=== PATIENT | male | born 1945 | race American Indian/Alaskan Native ===

== ENCOUNTER 2017-11-22 18:02 | Emergency (ER) | payer BC, OTHER ==
[2017-11-22] MEDS ORDERED: Sodium Chloride 0.9% 10 ML Syringe FLUSH PRN (18:40)
[2017-11-22 18:50] VITALS: BP 124/55
[2017-11-22 19:04] LABS: CHLORIDE,CL 100 mmol/L (101-111); SODIUM,NA 134 mmol/L (135-145)
--- NOTE | 2017-11-22 19:26 | EDM.PDOC ---
ED HPI GENERAL MEDICAL PROBLEM - General Chief Complaint: Neurological Problem Stated Complaint: [id number] LACK OF BALANCE- FALL RISK. NUMB ON LT SUSI Time Seen by Provider: 11/22/17 19:00 Source of Information: Reports: Patient History Limitations: Reports: No Limitations - History of Present Illness INITIAL COMMENTS - FREE TEXT/NARRATIVE: This 71 yo male patient reports to the ED due to weakness and numbness of his left hand and left foot. The patient reports his symptoms started this morning at about 1100. The patient reports that his symptoms seem to come and go. At the time of the examination, the patient reports no current symptoms. The patient has a past history of diabetes, hyperlipidemia and hypertension. Onset: Today Onset Date: 11/22/17 Onset Time: 11:00 Duration: Intermittent Location: Reports: Generalized Quality: Reports: Other Severity: Moderate Improves with: Reports: None Worsens with: Reports: None Associated Symptoms: Reports: No Other Symptoms - Related Data Allergies Allergy/AdvReac Type Severity Reaction Status Date / Time No Known Allergies Allergy Verified 11/22/17 18:46 Home Meds: Home Meds Aspirin [Adult Low Dose Aspirin EC] 81 mg PO DAILY 12/29/13 [History] Brimonidine Tartrate 1 drop EYEBOTH BID 12/29/13 [History] Lisinopril 1 tab PO DAILY 12/29/13 [History] Travoprost [Travatan Z 0.004% Ophth Soln] 1 drop EYEBOTH BEDTIME 12/29/13 [ History] metFORMIN [Glucophage] 1 tab PO BID 12/29/13 [History] atorvaSTATin Calcium [Atorvastatin Calcium] 1 tab PO BEDTIME 11/22/17 [History] Past Medical History HEENT History: Reports: Glaucoma Cardiovascular History: Reports: CAD, High Cholesterol, Hypertension Musculoskeletal History: Reports: Other (See Below) Other Musculoskeletal History: rib fractures Endocrine/Metabolic History: Reports: Diabetes, Type II Social & Family History - Family History Family Medical History: Noncontributory - Tobacco Use Smoking Status *Q: Never Smoker - Caffeine Use Caffeine Use: Reports: Coffee - Recreational Drug Use Recreational Drug Use: No - Living Situation & Occupation Living situation: Reports: , with Family Occupation: Retired ED ROS GENERAL - Review of Systems Review Of Systems: ROS reveals no pertinent complaints other than HPI. ED EXAM, NEURO - Physical Exam Exam: See Below Exam Limited By: No Limitations General Appearance: Alert, WD/WN, No Apparent Distress Eye Exam: Bilateral Eye: EOMI, Normal Inspection, PERRL Ears: Normal External Exam, Normal Canal, Hearing Grossly Normal, Normal TMs Nose: Normal Inspection, Normal Mucosa, No Blood Throat/Mouth: Normal Inspection, Normal Lips, Normal Teeth, Normal Gums, Normal Oropharynx, Normal Voice, No Airway Compromise Head Exam: Atraumatic, Normocephalic Neck: Normal Inspection, Supple, Non-Tender, Full Range of Motion Respiratory/Chest: No Respiratory Distress, Lungs Clear, Normal Breath Sounds, No Accessory Muscle Use, Chest Non-Tender Cardiovascular: No Edema, No Gallop, No JVD, No Murmur, No Rub, Bradycardia GI/Abdominal: Normal Bowel Sounds, Soft, Non-Tender, No Organomegaly, No Distention, No Abnormal Bruit, No Mass (Male) Exam: Deferred Rectal (Males) Exam: Deferred Neurological: Alert, Normal Mood/Affect, Normal Dorsiflexion, CN II-XII Intact, Normal Plantar Flexion, Normal Gait, Normal Reflexes, No Motor/Sensory Deficits , Oriented x 3 Back Exam: Normal Inspection, Full Range of Motion, NT Extremities: Normal Inspection, Normal Range of Motion, Non-Tender, No Pedal Edema, Normal Capillary Refill Psychiatric: Normal Affect, Normal Mood Skin Exam: Warm, Dry, Intact, Normal Color, No Rash Course - Vital Signs Last Recorded V/S: Last Vital Signs Temp 36.9 C 11/22/17 18:15 Pulse 69 11/22/17 18:15 Resp 16 11/22/17 18:15 BP 124/55 L 11/22/17 18:15 Pulse Ox 98 11/22/17 18:15 - Orders/Labs/Meds Orders: Active Orders 24 hr Category Date Time Status EKG 12 Lead [EKG Documentation Completion] [RC] STAT Care 11/22/17 18:39 Active Peripheral IV Care [RC] . DIRECTED Care 11/22/17 18:40 Active CBC WITH AUTO DIFF [HEME] Stat Lab 11/22/17 19:24 Ordered UA W/MICROSCOPIC [URIN] Stat Lab 11/22/17 18:39 Ordered Sodium Chloride 0.9% [Saline Flush] Med 11/22/17 18:40 Active 10 ml FLUSH ASDIRECTED PRN Peripheral IV Insertion Adult [OM.PC] Stat Oth 11/22/17 18:39 Ordered Medication Orders Sodium Chloride (Saline Flush) 10 ml FLUSH ASDIRECTED PRN PRN Reason: Keep Vein Open Last Admin: 11/22/17 18:35 Dose: 10 ml Labs: Laboratory Tests 11/22/17 11/22/17 11/22/17 Range/Units 18:38 18:38 18:38 WBC 7.6 (5.0-10.0) 10^3/uL RBC 4.66 (4.6-6.2) 10^6/uL Hgb 14.1 (14.0-18.0) g/dL Hct 40.3 (40.0-54.0) % MCV 86.5 (80-100) fL MCH 30.3 (27.0-34.0) pg MCHC 35.0 (33.0-35.0) g/dL Plt Count 257 (150-450) 10^3/uL Neut % (Auto) 66.0 (42.2-75.2) % Lymph % (Auto) 20.9 (20.5-50.1) % Villalba % (Auto) 7.1 (2-8) % Eos % (Auto) 5.7 H (1.0-3.0) % Baso % (Auto) 0.3 (0.0-1.0) % PT 9.9 (9.0-12.0) SEC INR 1.0 (0.9-1.2) APTT 24.3 (22.0-34.0) SEC Sodium 134 L (135-145) mmol/L Potassium 4.5 (3.6-5.0) mmol/L Chloride 100 L (101-111) mmol/L Carbon Dioxide 27.0 (21.0-31.0) mmol/L Anion Gap 11.5 BUN 19 H (7-18) mg/dL Creatinine 1.1 (0.6-1.3) mg/dL Est Cr Clr Drug Dosing 59.59 mL/min Estimated GFR (MDRD) > 60 BUN/Creatinine Ratio 17.27 Glucose 186 H (74-105) mg/dL Calcium 9.0 (8.4-10.2) mg/dl Magnesium 1.7 L (1.8-2.5) mg/dL Total Bilirubin 0.6 (0.2-1.0) mg/dL AST 16 (10-42) IU/L ALT 13 (10-60) IU/L Alkaline Phosphatase 58 (42-121) IU/L Troponin I < 0.02 (0.00-0.02) ng/ml B-Natriuretic Peptide 205 H (0-100) pg/ml Total Protein 7.7 (6.7-8.2) g/dl Albumin 3.8 (3.2-5.5) g/dl Globulin 3.9 Albumin/Globulin Ratio 0.97 TSH, Ultra Sensitive (0.45-5.33) uIu/mL 11/22/17 Range/Units 18:38 WBC (5.0-10.0) 10^3/uL RBC (4.6-6.2) 10^6/uL Hgb (14.0-18.0) g/dL Hct (40.0-54.0) % MCV (80-100) fL MCH (27.0-34.0) pg MCHC (33.0-35.0) g/dL Plt Count (150-450) 10^3/uL Neut % (Auto) (42.2-75.2) % Lymph % (Auto) (20.5-50.1) % Villalba % (Auto) (2-8) % Eos % (Auto) (1.0-3.0) % Baso % (Auto) (0.0-1.0) % PT (9.0-12.0) SEC INR (0.9-1.2) APTT (22.0-34.0) SEC Sodium (135-145) mmol/L Potassium (3.6-5.0) mmol/L Chloride (101-111) mmol/L Carbon Dioxide (21.0-31.0) mmol/L Anion Gap BUN (7-18) mg/dL Creatinine (0.6-1.3) mg/dL Est Cr Clr Drug Dosing mL/min Estimated GFR (MDRD) BUN/Creatinine Ratio Glucose (74-105) mg/dL Calcium (8.4-10.2) mg/dl Magnesium (1.8-2.5) mg/dL Total Bilirubin (0.2-1.0) mg/dL AST (10-42) IU/L ALT (10-60) IU/L Alkaline Phosphatase (42-121) IU/L Troponin I (0.00-0.02) ng/ml B-Natriuretic Peptide (0-100) pg/ml Total Protein (6.7-8.2) g/dl Albumin (3.2-5.5) g/dl Globulin Albumin/Globulin Ratio TSH, Ultra Sensitive 1.14 (0.45-5.33) uIu/mL Meds: Medications Generic Name Dose Route Start Last Admin Trade Name Freq PRN Reason Stop Dose Admin Sodium Chloride 10 ml 11/22/17 18:40 11/22/17 18:35 Saline Flush FLUSH 10 ml ASDIRECTED PRN Administration Keep Vein Open Discontinued Medications Generic Name Dose Route Start Last Admin Trade Name Freq PRN Reason Stop Dose Admin Aspirin 324 mg 11/22/17 19:54 Aspirin PO 11/22/17 19:55 ONETIME ONE Departure - Departure Time of Disposition: 19:56 Disposition: DC/Tfer to Acute Hospital 02 Condition: Fair Clinical Impression: Bradycardia, Second degree atrioventricular block, Mobitz (type) I - Discharge Information Referrals: Noble Davalos [Primary Care Provider] - Forms: Interfacility Transfer EMTALA Care Plan Goals: Discussed the history, examination, lab, CT, EKG and chest x-ray with Dr. Zhong (Hospitalist with [facility]). Dr. Zhong accepted the patient for continued evaluation and further management. The patient will be transported by [facility].
[2017-11-22] MEDS ORDERED: Aspirin 81 MG Tab.Chew PO ONE (19:54)
--- NOTE | 2017-11-27 13:19 | EKG ---
11/22/2017 - JACQUELINE HO - TIME: 1820 hours. FINDINGS: EKG showing sinus rhythm with first-degree AV block. [facility] /[id number]
--- NOTE | 2017-11-27 13:19 | EKG ---
11/22/2017 - JACQUELINE HO - TIME: 7:08 p.m. FINDINGS: Normal sinus rhythm. [facility] /[id number]
== END 2017-11-22 20:34 ==
LOC: DL.ED 18:02
DX: I44.1 Atrioventricular block, second degree (principal); E78.00 Pure hypercholesterolemia, unspecified; I10 Essential (primary) hypertension; E11.9 Type 2 diabetes mellitus without complications; E78.5 Hyperlipidemia, unspecified; Z79.82 Long term (current) use of aspirin; Z79.84 Long term (current) use of oral hypoglycemic drugs; Z79.899 Other long term (current) drug therapy
CPT/HCPCS: 36415; 70450; 71045; 80053; 81001; 82962; 83735; 83880; 84443; 84484; 85025; 85610; 85730; 93005; 99285; A9270; J7050

== ENCOUNTER 2018-08-01 11:49 | Emergency (ER) | payer BC, OTHER ==
[2018-08-01 12:04] VITALS: BP 81/62
--- NOTE | 2018-08-01 12:27 | CR ---
Clinical history: 72-year-old male smoker complaining chest pain ("interstitial edema" reported chest exam 14 June 2018). Interpretation: Upright AP portable chest film abnormal. Borderline cardiomegaly and chronic shaggy accentuation of bronchovascular markings (relative decreased venous congestion compared 14 June 2018 i.e. improved). Reproducible infiltrate/atelectasis or bronchiectasis left base. Clinical aspiration? No new signs of alveolar edema, dependent pleural fluid accumulation, lung mass or other focal lobar consolidation.
[2018-08-01 12:30] LABS: ANION GAP 16.4; CHLORIDE,CL 88 mmol/L (101-111); SODIUM,NA 127 mmol/L (135-145)
[2018-08-01] MEDS ORDERED: cefTRIAXone 1 GM in Sodium Chloride 0.9% 50 ML IV ONE (13:14)
[2018-08-01] MEDS ORDERED: methylPREDNISolone Sodium Succinate 125 MG/2 ML SDV IVPUSH ONE (13:14)
--- NOTE | 2018-08-01 13:23 | EDM.PDOC ---
ED HPI GENERAL MEDICAL PROBLEM - General Chief Complaint: Chest Pain Stated Complaint: CHEST PAINS Time Seen by Provider: 08/01/18 12:20 Source of Information: Reports: Patient History Limitations: Reports: No Limitations - History of Present Illness INITIAL COMMENTS - FREE TEXT/NARRATIVE: This 72 yo male patient reports to the ED with increased chest pain and shortness of breath over the past 2-3 weeks. The patient reports he does have an appointment next week with cardiology for replacement of his pacemaker and possible stent placement. The patient reports he has been coughing up greenish fluids this week. The patient's family reports the patient has not been eating well over the past several weeks. Onset: Gradual Duration: Week(s):, Constant, Getting Worse Location: Reports: Chest Quality: Reports: Other Severity: Moderate Improves with: Reports: None Worsens with: Reports: None Context: Reports: Other Associated Symptoms: Reports: cough w sputum Chest Pain Score (Numeric/FACES): 6 - Related Data Allergies Allergy/AdvReac Type Severity Reaction Status Date / Time No Known Allergies Allergy Verified 06/14/18 19:18 Home Meds: Home Meds Aspirin [Adult Low Dose Aspirin EC] 81 mg PO DAILY 12/29/13 [History] Brimonidine Tartrate 1 drop EYEBOTH BID 12/29/13 [History] Lisinopril 1 tab PO DAILY 12/29/13 [History] Travoprost [Travatan Z 0.004% Ophth Soln] 1 drop EYEBOTH BEDTIME 12/29/13 [ History] metFORMIN [Glucophage] 1 tab PO BID 12/29/13 [History] atorvaSTATin Calcium [Atorvastatin Calcium] 1 tab PO BEDTIME 11/22/17 [History] Past Medical History HEENT History: Reports: Glaucoma Cardiovascular History: Reports: CAD, High Cholesterol, Hypertension Respiratory History: Reports: Bronchitis, Recurrent Gastrointestinal History: Reports: None Genitourinary History: Reports: None Musculoskeletal History: Reports: Other (See Below) Other Musculoskeletal History: rib fractures Neurological History: Reports: None Psychiatric History: Reports: None Endocrine/Metabolic History: Reports: Diabetes, Type II Hematologic History: Reports: None Immunologic History: Reports: None Oncologic (Cancer) History: Reports: None Dermatologic History: Reports: None - Infectious Disease History Infectious Disease History: Reports: None - Past Surgical History Cardiovascular Surgical History: Reports: Pacer Social & Family History - Family History Family Medical History: Noncontributory - Tobacco Use Smoking Status *Q: Former Smoker Used Tobacco, but Quit: Yes Month/Year Tobacco Last Used: ? - Caffeine Use Caffeine Use: Reports: Coffee Other Caffeine Use: green tea - Recreational Drug Use Recreational Drug Use: No - Living Situation & Occupation Living situation: Reports: , with Family Occupation: Retired ED ROS GENERAL - Review of Systems Review Of Systems: ROS reveals no pertinent complaints other than HPI. ED EXAM, GENERAL - Physical Exam Exam: See Below Exam Limited By: No Limitations General Appearance: Alert, WD/WN, Moderate Distress, Thin Eye Exam: Bilateral Eye: EOMI, Normal Inspection, PERRL Ears: Normal External Exam, Normal Canal, Hearing Grossly Normal, Normal TMs Nose: Normal Inspection, Normal Mucosa, No Blood Throat/Mouth: Normal Inspection, Normal Lips, Normal Teeth, Normal Gums, Normal Oropharynx, Normal Voice, No Airway Compromise Head: Atraumatic, Normocephalic Neck: Normal Inspection, Supple, Non-Tender, Full Range of Motion Respiratory/Chest: Rhonchi (diffuse) Cardiovascular: Normal Peripheral Pulses, Regular Rate, Rhythm, No Edema, No Gallop, No JVD, No Murmur, No Rub GI/Abdominal: Normal Bowel Sounds, Soft, Non-Tender, No Organomegaly, No Distention, No Abnormal Bruit, No Mass (Male) Exam: Deferred Rectal (Males) Exam: Deferred Back Exam: Normal Inspection, Full Range of Motion, NT Extremities: Normal Inspection, Normal Range of Motion, Non-Tender, Normal Capillary Refill, No Pedal Edema Neurological: Alert, Oriented, CN II-XII Intact, Normal Cognition, Normal Gait, Normal Reflexes, No Motor/Sensory Deficits Psychiatric: Normal Affect, Normal Mood Skin Exam: Warm, Dry, Intact, Normal Color, No Rash Lymphatic: No Adenopathy Course - Vital Signs Last Recorded V/S: Last Vital Signs Temp 36.8 C 08/01/18 12:02 Pulse 98 08/01/18 12:02 Resp 22 H 08/01/18 12:02 BP 81/62 L 08/01/18 12:02 Pulse Ox 100 08/01/18 12:02 - Orders/Labs/Meds Orders: Active Orders 24 hr Category Date Time Status EKG Documentation Completion [RC] URGENT Care 08/01/18 11:58 Active cefTRIAXone [Rocephin] 1 gm Med 08/01/18 13:14 Active Sodium Chloride 0.9% [Normal Saline] 50 ml IV ONETIME Medication Orders Ceftriaxone Sodium 1 gm/ (Sodium Chloride) 50 mls @ 50 mls/hr IV ONETIME ONE Stop: 08/01/18 14:13 Labs: Laboratory Tests 08/01/18 08/01/18 08/01/18 Range/Units 12:00 12:04 12:04 WBC 4.6 L (5.0-10.0) 10^3/uL RBC 4.34 L (4.6-6.2) 10^6/uL Hgb 12.4 L (14.0-18.0) g/dL Hct 38.0 L (40.0-54.0) % MCV 87.6 (80-100) fL MCH 28.6 (27.0-34.0) pg MCHC 32.6 L (33.0-35.0) g/dL Plt Count 196 D (150-450) 10^3/uL Neut % (Auto) 81.0 H (42.2-75.2) % Lymph % (Auto) 13.1 L (20.5-50.1) % Mcduffie % (Auto) 4.4 (2-8) % Eos % (Auto) 1.3 (1.0-3.0) % Baso % (Auto) 0.2 (0.0-1.0) % Sodium 127 L (135-145) mmol/L Potassium 3.4 L (3.6-5.0) mmol/L Chloride 88 L (101-111) mmol/L Carbon Dioxide 26.0 (21.0-31.0) mmol/L Anion Gap 16.4 BUN 18 (7-18) mg/dL Creatinine 1.0 (0.6-1.3) mg/dL Est Cr Clr Drug Dosing 55.69 mL/min Estimated GFR (MDRD) > 60 BUN/Creatinine Ratio 18.00 Glucose 118 H (74-105) mg/dL POC Glucose 129 H (83-110) mg/dl Calcium 8.1 L (8.4-10.2) mg/dl Total Bilirubin 2.9 H (0.2-1.0) mg/dL AST 193 H (10-42) IU/L ALT 199 H (10-60) IU/L Alkaline Phosphatase 71 (42-121) IU/L Troponin I 0.03 H* (0.00-0.02) ng/ml Total Protein 7.5 (6.7-8.2) g/dl Albumin 2.8 L (3.2-5.5) g/dl Globulin 4.7 Albumin/Globulin Ratio 0.60 Meds: Medications Generic Name Dose Route Start Last Admin Trade Name Freq PRN Reason Stop Dose Admin Ceftriaxone Sodium 1 gm/ 50 mls @ 50 mls/hr 08/01/18 13:14 Sodium Chloride IV 08/01/18 14:13 ONETIME ONE Discontinued Medications Generic Name Dose Route Start Last Admin Trade Name Freq PRN Reason Stop Dose Admin Methylprednisolone Sodium Succinate 125 mg 08/01/18 13:14 Solu-Medrol IVPUSH 08/01/18 13:15 ONETIME ONE Departure - Departure Time of Disposition: 13:26 Disposition: Home, Self-Care 01 Condition: Fair Clinical Impression: Bronchitis, COPD exacerbation - Discharge Information *PRESCRIPTION DRUG MONITORING PROGRAM REVIEWED*: Not Applicable *COPY OF PRESCRIPTION DRUG MONITORING REPORT IN PATIENT EFREM: Not Applicable Instructions: Chronic Obstructive Pulmonary Disease Exacerbation, [id number] Care Plan Goals: The patient and daughters were advised of the examination, lab, EKG and x-ray results during the visit. The patient was given an IV dose of SoluMedrol and Rocephin while in the ED. The patient was discharged with a script for Azithromycin (500 mg) #5 to take 1 by mouth daily for 5 days and Prednisone (20 mg) #10 to take 2 by mouth daily for 5 days. If the patient has any additional symptoms or concerns, the patient should either return to the emergency department or visit his primary care facility. - My Orders Last 24 Hours: My Active Orders 08/01/18 11:58 EKG Documentation Completion [RC] URGENT 08/01/18 13:14 cefTRIAXone [Rocephin] 1 gm Sodium Chloride 0.9% [Normal Saline] 50 ml IV ONETIME - Assessment/Plan Last 24 Hours: My Active Orders 08/01/18 11:58 EKG Documentation Completion [RC] URGENT 08/01/18 13:14 cefTRIAXone [Rocephin] 1 gm Sodium Chloride 0.9% [Normal Saline] 50 ml IV ONETIME
== END 2018-08-01 14:52 | disposition home or self-care (01) ==
LOC: DL.ED 11:49
DX: J44.1 Chronic obstructive pulmonary disease with (acute) exacerbation (principal); I10 Essential (primary) hypertension; E11.9 Type 2 diabetes mellitus without complications; Z87.891 Personal history of nicotine dependence; Z79.82 Long term (current) use of aspirin
CPT/HCPCS: 36415; 71045; 80053; 82962; 84484; 85025; 93005; 96365; 96375; 99285; J0696; J2930; J7050

== ENCOUNTER 2018-08-29 20:45 | Emergency (ER) | payer BC, OTHER ==
[2018-08-29 21:27] VITALS: BP 85/50
[2018-08-29 21:42] LABS: CHLORIDE,CL 96 mmol/L (101-111); SODIUM,NA 131 mmol/L (135-145)
[2018-08-29] MEDS ORDERED: Potassium Chloride 20 MEQ in Premix Bag 1 BAG IV ONE (21:46)
[2018-08-29] MEDS ORDERED: Sodium Chloride 0.9% 1,000 ML IV SCH (22:00)
--- NOTE | 2018-08-31 22:09 | EDM.PDOC ---
ED HPI GENERAL MEDICAL PROBLEM - General Chief Complaint: Neuro Symptoms/Deficits Stated Complaint: CALL IN Time Seen by Provider: 08/29/18 20:55 Source of Information: Reports: Patient, EMS, Family, RN Notes Reviewed History Limitations: Reports: No Limitations - History of Present Illness INITIAL COMMENTS - FREE TEXT/NARRATIVE: ED via [facility]. patient found by family, slurred speech confused and right sided weakness. Last known well 1929. Patient had pacemaker replaced on Saturday Home today around 1829. EMS noted BS on arrival 34 , unilateral weakness that had minimal improvement following glucose administration. More alert and speech clearing enroute. Patient not currently on any blood thinner due to previous GI bleed. - Related Data Allergies Allergy/AdvReac Type Severity Reaction Status Date / Time No Known Allergies Allergy Verified 08/29/18 21:59 Home Meds: Home Meds Aspirin [Adult Low Dose Aspirin EC] 81 mg PO DAILY 12/29/13 [History] Brimonidine Tartrate 1 drop EYEBOTH BID 12/29/13 [History] atorvaSTATin Calcium [Atorvastatin Calcium] 40 mg PO BEDTIME 11/22/17 [History] Albuterol Sulfate [Proair Hfa] 2 puff INH QID PRN 08/14/18 [History] Clobetasol [Clobetasol Propionate 0.05% Cream] 1 applic TOP BID PRN 08/14/18 [ History] Clopidogrel [Plavix] 75 mg PO DAILY 08/14/18 [History] Dorzolamide HCl/Timolol Maleat [Dorzolamide-Timolol Eye Drops] 1 drop EYEBOTH BID 08/14/18 [History] Furosemide 40 mg PO DAILY 08/14/18 [History] Insulin Detemir [Levemir] 10 units SUBCUT DAILY 08/14/18 [History] Liraglutide [Victoza] 1.8 mg SUBCUT DAILY 08/14/18 [History] Losartan [Cozaar] 12.5 mg PO DAILY 08/14/18 [History] Metoprolol Succinate [Toprol XL] 25 mg PO DAILY 08/14/18 [History] Nitroglycerin [Nitrostat] 0.4 mg SL .Q5MIN PRN 08/14/18 [History] Travoprost [Travatan Z] 1 drop EYEBOTH BEDTIME 08/14/18 [History] metFORMIN HCl [Glucophage] 1,000 mg PO BID 08/14/18 [History] Past Medical History HEENT History: Reports: Glaucoma Cardiovascular History: Reports: CAD, Heart Failure, High Cholesterol, Hypertension, Other (See Below) Other Cardiovascular History: complete AV block, coronary arteriosclerosis-non candidate for CABG Respiratory History: Reports: Bronchitis, Recurrent Gastrointestinal History: Reports: None Genitourinary History: Reports: Diabetic Nephropathy Musculoskeletal History: Reports: Other (See Below) Other Musculoskeletal History: rib fractures Neurological History: Reports: None Psychiatric History: Reports: None Endocrine/Metabolic History: Reports: Diabetes, Type II Hematologic History: Reports: None Immunologic History: Reports: None Oncologic (Cancer) History: Reports: None Dermatologic History: Reports: None - Infectious Disease History Infectious Disease History: Reports: None - Past Surgical History Cardiovascular Surgical History: Reports: Pacer Other Cardiovascular Surgeries/Procedures: Pacer in left chest replaced on 2018 Social & Family History - Family History Family Medical History: Noncontributory - Caffeine Use Caffeine Use: Reports: Coffee Other Caffeine Use: green tea - Living Situation & Occupation Living situation: Reports: , with Family Occupation: Retired ED ROS GENERAL - Review of Systems Review Of Systems: ROS reveals no pertinent complaints other than HPI. ED EXAM, NEURO - Physical Exam Exam: See Below Exam Limited By: No Limitations General Appearance: Alert, No Apparent Distress Eye Exam: Bilateral Eye: Other (legally blind, baseline visual field deficit) Ears: Normal External Exam Nose: Normal Inspection Throat/Mouth: Normal Inspection Head Exam: Atraumatic, Normocephalic Neck: Normal Inspection, Full Range of Motion Respiratory/Chest: No Respiratory Distress, Lungs Clear, Normal Breath Sounds Cardiovascular: Regular Rate, Rhythm (paced), No Edema GI/Abdominal: Normal Bowel Sounds, Soft, Pelvis Stable Rectal (Males) Exam: Heme + Stool Neurological: Alert, Normal Mood/Affect, Oriented x 3, Other (slight slurring noted on arrival mild right sided weakness when moving to [place]. On return bilateral visual communications instructor equal, minor drift right lower extremity no facial droop. Speech clear. oriented, talking clearly with family. ) Extremities: Other (left arm in sling) Psychiatric: Normal Affect, Normal Mood Skin Exam: Warm, Dry, Pallor, Other (duoderm to coccyx, surgical dressing left upper chest at pacer site.) EKG INTERPRETATION Rhythm: Other (paced) Course - Vital Signs Last Recorded V/S: Last Vital Signs Temp 98.4 F 08/29/18 20:55 Pulse 66 08/29/18 20:55 Resp 24 H 08/29/18 20:55 BP 85/50 L 08/29/18 20:55 Pulse Ox 92 L 08/29/18 20:55 - Orders/Labs/Meds Labs: Laboratory Tests 08/29/18 08/29/18 08/29/18 Range/Units 20:57 21:13 21:13 WBC 2.3 L (5.0-10.0) 10^3/uL RBC 3.43 L (4.6-6.2) 10^6/uL Hgb 10.3 L D (14.0-18.0) g/dL Hct 31.2 L (40.0-54.0) % MCV 91.0 (80-100) fL MCH 30.0 (27.0-34.0) pg MCHC 33.0 (33.0-35.0) g/dL Plt Count 101 L D (150-450) 10^3/uL Neut % (Auto) 88.5 H (42.2-75.2) % Lymph % (Auto) 7.1 L (20.5-50.1) % [place] % (Auto) 4.0 (2-8) % Eos % (Auto) 0.4 L (1.0-3.0) % Baso % (Auto) 0.0 (0.0-1.0) % PT (9.0-12.0) SEC INR (0.9-1.2) Sodium 131 L (135-145) mmol/L Potassium 2.0 L* (3.6-5.0) mmol/L Chloride 96 L (101-111) mmol/L Carbon Dioxide 27.0 (21.0-31.0) mmol/L Anion Gap 10.0 BUN 11 (7-18) mg/dL Creatinine 0.8 (0.6-1.3) mg/dL Est Cr Clr Drug Dosing 70.01 mL/min Estimated GFR (MDRD) > 60 BUN/Creatinine Ratio 13.75 Glucose 106 H (74-105) mg/dL POC Glucose 118 H (83-110) mg/dl Lactic Acid (0.5-2.2) mmol/L Calcium 7.2 L (8.4-10.2) mg/dl Magnesium 1.5 L (1.8-2.5) mg/dL Total Bilirubin 1.9 H (0.2-1.0) mg/dL AST 25 (10-42) IU/L ALT 11 (10-60) IU/L Alkaline Phosphatase 65 (42-121) IU/L CK-MB (CK-2) (0.4-4.7) ng/mL Troponin I 0.02 (0.00-0.02) ng/ml B-Natriuretic Peptide 4350 H (0-100) pg/ml Total Protein 5.0 L (6.7-8.2) g/dl Albumin 2.1 L (3.2-5.5) g/dl Globulin 2.9 Albumin/Globulin Ratio 0.72 Amylase 36 (28-100) U/L Lipase 28 (22-51) U/L Urine Color (YELLOW) Urine Appearance (CLEAR) Urine pH (5.0-9.0) Ur Specific [place] (1.005-1.030) Urine Protein (NEGATIVE) Urine Glucose (UA) (NEGATIVE) Urine Ketones (NEGATIVE) Urine Occult Blood (NEGATIVE) Urine Nitrite (NEGATIVE) Urine Bilirubin (NEGATIVE) Urine Urobilinogen (0.2-1.0) mg/dL Ur Leukocyte Esterase (NEGATIVE) Urine RBC /HPF Urine WBC (0-5/HPF) /HPF Ur Epithelial Cells /HPF Amorphous Sediment (0/HPF) /HPF Urine Bacteria (0-FEW/HPF) /HPF Hyaline Casts /LPF Granular Casts /LPF Fine Granular Casts (0/LPF) /LPF Urine Mucus /LPF Ethyl Alcohol < 5 mg/dL 08/29/18 08/29/18 08/29/18 Range/Units 21:13 21:13 21:13 WBC (5.0-10.0) 10^3/uL RBC (4.6-6.2) 10^6/uL Hgb (14.0-18.0) g/dL Hct (40.0-54.0) % MCV (80-100) fL MCH (27.0-34.0) pg MCHC (33.0-35.0) g/dL Plt Count (150-450) 10^3/uL Neut % (Auto) (42.2-75.2) % Lymph % (Auto) (20.5-50.1) % [place] % (Auto) (2-8) % Eos % (Auto) (1.0-3.0) % Baso % (Auto) (0.0-1.0) % PT 15.1 H D (9.0-12.0) SEC INR 1.5 H (0.9-1.2) Sodium (135-145) mmol/L Potassium (3.6-5.0) mmol/L Chloride (101-111) mmol/L Carbon Dioxide (21.0-31.0) mmol/L Anion Gap BUN (7-18) mg/dL Creatinine (0.6-1.3) mg/dL Est Cr Clr Drug Dosing mL/min Estimated GFR (MDRD) BUN/Creatinine Ratio Glucose (74-105) mg/dL POC Glucose (83-110) mg/dl Lactic Acid 1.0 (0.5-2.2) mmol/L Calcium (8.4-10.2) mg/dl Magnesium (1.8-2.5) mg/dL Total Bilirubin (0.2-1.0) mg/dL AST (10-42) IU/L ALT (10-60) IU/L Alkaline Phosphatase (42-121) IU/L CK-MB (CK-2) 1.40 (0.4-4.7) ng/mL Troponin I (0.00-0.02) ng/ml B-Natriuretic Peptide (0-100) pg/ml Total Protein (6.7-8.2) g/dl Albumin (3.2-5.5) g/dl Globulin Albumin/Globulin Ratio Amylase (28-100) U/L Lipase (22-51) U/L Urine Color (YELLOW) Urine Appearance (CLEAR) Urine pH (5.0-9.0) Ur Specific [place] (1.005-1.030) Urine Protein (NEGATIVE) Urine Glucose (UA) (NEGATIVE) Urine Ketones (NEGATIVE) Urine Occult Blood (NEGATIVE) Urine Nitrite (NEGATIVE) Urine Bilirubin (NEGATIVE) Urine Urobilinogen (0.2-1.0) mg/dL Ur Leukocyte Esterase (NEGATIVE) Urine RBC /HPF Urine WBC (0-5/HPF) /HPF Ur Epithelial Cells /HPF Amorphous Sediment (0/HPF) /HPF Urine Bacteria (0-FEW/HPF) /HPF Hyaline Casts /LPF Granular Casts /LPF Fine Granular Casts (0/LPF) /LPF Urine Mucus /LPF Ethyl Alcohol mg/dL 08/29/18 Range/Units 21:37 WBC (5.0-10.0) 10^3/uL RBC (4.6-6.2) 10^6/uL Hgb (14.0-18.0) g/dL Hct (40.0-54.0) % MCV (80-100) fL MCH (27.0-34.0) pg MCHC (33.0-35.0) g/dL Plt Count (150-450) 10^3/uL Neut % (Auto) (42.2-75.2) % Lymph % (Auto) (20.5-50.1) % [place] % (Auto) (2-8) % Eos % (Auto) (1.0-3.0) % Baso % (Auto) (0.0-1.0) % PT (9.0-12.0) SEC INR (0.9-1.2) Sodium (135-145) mmol/L Potassium (3.6-5.0) mmol/L Chloride (101-111) mmol/L Carbon Dioxide (21.0-31.0) mmol/L Anion Gap BUN (7-18) mg/dL Creatinine (0.6-1.3) mg/dL Est Cr Clr Drug Dosing mL/min Estimated GFR (MDRD) BUN/Creatinine Ratio Glucose (74-105) mg/dL POC Glucose (83-110) mg/dl Lactic Acid (0.5-2.2) mmol/L Calcium (8.4-10.2) mg/dl Magnesium (1.8-2.5) mg/dL Total Bilirubin (0.2-1.0) mg/dL AST (10-42) IU/L ALT (10-60) IU/L Alkaline Phosphatase (42-121) IU/L CK-MB (CK-2) (0.4-4.7) ng/mL Troponin I (0.00-0.02) ng/ml B-Natriuretic Peptide (0-100) pg/ml Total Protein (6.7-8.2) g/dl Albumin (3.2-5.5) g/dl Globulin Albumin/Globulin Ratio Amylase (28-100) U/L Lipase (22-51) U/L Urine Color Dark yellow (YELLOW) Urine Appearance Slightly cloudy (CLEAR) Urine pH 5.5 (5.0-9.0) Ur Specific [place] 1.020 (1.005-1.030) Urine Protein 30 H (NEGATIVE) Urine Glucose (UA) Negative (NEGATIVE) Urine Ketones Negative (NEGATIVE) Urine Occult Blood Trace-intact H (NEGATIVE) Urine Nitrite Negative (NEGATIVE) Urine Bilirubin Negative (NEGATIVE) Urine Urobilinogen 4.0 H (0.2-1.0) mg/dL Ur Leukocyte Esterase Negative (NEGATIVE) Urine RBC 0-5 /HPF Urine WBC 0-5 (0-5/HPF) /HPF Ur Epithelial Cells Few /HPF Amorphous Sediment Few (0/HPF) /HPF Urine Bacteria Rare (0-FEW/HPF) /HPF Hyaline Casts Moderate H /LPF Granular Casts Rare /LPF Fine Granular Casts Few H (0/LPF) /LPF Urine Mucus Many H /LPF Ethyl Alcohol mg/dL Meds: Medications Discontinued Medications Generic Name Dose Route Start Last Admin Trade Name Freq PRN Reason Stop Dose Admin Potassium Chloride 20 meq/ 100 mls @ 50 mls/hr 08/29/18 21:46 08/29/18 21:51 Premix IV 08/29/18 23:45 50 mls/hr ONETIME ONE Administration Sodium Chloride 1,000 mls @ 999 mls/hr 08/29/18 22:00 08/29/18 21:53 Normal Saline IV 09/02/18 21:52 999 mls/hr ASDIRECTED [facility] Administration - Radiology Interpretation Free Text/Narrative:: Head CT negative for bleed or acute infarct - Re-Assessments/Exams Free Text/Narrative Re-Assessment/Exam: Tx to [facility] accepting. Tx via [facility] [facility]. No ALS ground service available Departure - Departure Time of Disposition: 22:15 Disposition: DC/Tfer to Acute Hospital 02 Condition: Undetermined Clinical Impression: TIA (transient ischemic attack), Status post cardiac pacemaker procedure, Hx of gastrointestinal hemorrhage, Guaiac + stool, Hypoglycemia, Hypokalemia, CHF, Congestive heart failure - Discharge Information *PRESCRIPTION DRUG MONITORING PROGRAM REVIEWED*: Not Applicable *COPY OF PRESCRIPTION DRUG MONITORING REPORT IN PATIENT EFREM: Not Applicable Referrals: PCP,Unobtain [Primary Care Provider] - Forms: ED Department Discharge
== END 2018-08-29 22:06 ==
LOC: DL.ED 20:45
DX: G45.9 Transient cerebral ischemic attack, unspecified (principal); E11.649 Type 2 diabetes mellitus with hypoglycemia without coma; I11.0 Hypertensive heart disease with heart failure; I50.9 Heart failure, unspecified; R19.5 Other fecal abnormalities; E87.6 Hypokalemia; I25.10 Atherosclerotic heart disease of native coronary artery without angina pectoris; Z95.0 Presence of cardiac pacemaker; Z79.899 Other long term (current) drug therapy; Z79.4 Long term (current) use of insulin; Z79.82 Long term (current) use of aspirin
CPT/HCPCS: 36415; 70450; 80053; 81001; 82150; 82272; 82553; 82962; 83605; 83690; 83735; 83880; 84484; 85025; 85610; 87040; 93005; 96374; 96375; 99285; G0480; J3480; J7030